=== PATIENT | female | born 1980 | race Caucasian/White ===

== ENCOUNTER → 2017-04-03 | Outpatient (REF) ==
--- NOTE | 2017-04-03 15:57 | REP ---
Clinical: Pain and disability. Technique: AP, lateral, coned-down views of the lumbosacral spine. Comparison: 08/14/2013. Findings: Grade 1 anterolisthesis at the L4-5 level of approximately 8 mm has progressed from prior examination. Associated endplate sclerosis and disc space narrowing at L4-5 and L5-S1 with hypertrophic facet changes is again noted and similar to prior examination. No acute fracture / compression injury. Impression: 1. New grade 1 anterolisthesis at the L4-5 level. 2. Moderate chronic degenerative changes at L4-5 and L5-S1. Signed by Frank Salas MD 04/03/2017 03:48 P
== END ==
LOC: M SMT 14:57
PROVIDERS: ATTEND Internal Medicine
DX: Z02.71 Encounter for disability determination (principal)

== ENCOUNTER → 2019-06-03 | Outpatient (REF) | payer MEDICAID, OTHER | LOC: M SMT 13:16 | PROVIDERS: ATTEND Urology | DX: T19.1XXA Foreign body in bladder, initial encounter (principal); Y92.9 Unspecified place or not applicable; Y93.9 Activity, unspecified; Y99.9 Unspecified external cause status ==